=== PATIENT | male | born 1995 | race African-American/Black ===

== ENCOUNTER 2018-05-01 18:57 | Emergency (ER) | payer OTHER ==
[2018-05-01] MEDS ORDERED: cefTRIAXone SOD 1 GM in D5W MINI-BAG PLUS 50 ML IV (20:15)
[2018-05-01] MEDS: cefTRIAXone SOD 1 GM VIAL (J0696) IM (20:29)
[2018-05-01] MEDS: AZITHROMYCIN 250 MG TAB PO (20:29)
[2018-05-01 22:51] LABS: CHLAMYDIA DNA AMPLIFICATION NEGATIVE (NEGATIVE); GC DNA AMPLIFICATION NEGATIVE (NEGATIVE)
== END 2018-05-01 20:59 | disposition home or self-care (01) ==
LOC: M ED 18:57
DX: Z20.2 Contact with and (suspected) exposure to infections with a predominantly sexual mode of transmission (principal)
CPT/HCPCS: J0696

== ENCOUNTER 2018-08-25 06:17 | Emergency (ER) | payer OTHER | END 2018-08-25 07:17 | disposition home or self-care (01) | LOC: M ED 06:17 | DX: J06.9 Acute upper respiratory infection, unspecified (principal); R00.1 Bradycardia, unspecified | CPT/HCPCS: 71046 ==

== ENCOUNTER 2019-04-19 19:10 | Emergency (ER) | payer OTHER ==
[~2019-04-19] VITALS: Ht 185.4 cm; Wt 86.4 kg
[~2019-04-19 19:10] MED LIST: FLON1SPR NARES; ZITHTAB PO; ZYRT10CA PO
[2019-04-19 20:04] LABS: BASO % 0.3 % (0.0-1.0); EOS # 0.3 10^3/uL (0.0-0.50); EOS % 3.5 % (0.0-3.0); HEMATOCRIT 44.5 % (42.0-52.0); HEMOGLOBIN 14.5 g/dl (13.5-17.5); LYMPH # 2.1 10^3/uL (1.5-6.5); LYMPH % 26.3 % (24.0-44.0); MEAN CORPUSCULAR HEMOGLOBIN 26.5 pg (27.0-33.0); MEAN CORPUSCULAR HGB CONC 32.6 g/dl (32.0-36.5); MEAN CORPUSCULAR VOLUME 81.4 fl (80.0-96.0); MONO # 0.6 10^3/uL (0.0-0.8); MONO % 7.3 % (0.0-5.0); NEUTROPHILS % 62.3 % (36.0-66.0); PLATELET COUNT, AUTOMATED 181 10^3/uL (150-450); RED BLOOD COUNT 5.47 10^6/uL (4.30-6.10)
[2019-04-19 21:12] LABS: ALBUMIN 3.3 GM/DL (3.2-5.2); ALT/SGPT 635 U/L (12-78); BILIRUBIN,TOTAL 0.5 MG/DL (0.2-1.0); BLOOD UREA NITROGEN 13 MG/DL (7-18); CALCIUM LEVEL 8.7 MG/DL (8.5-10.1); CARBON DIOXIDE LEVEL 31 MEQ/L (21-32); CHLORIDE LEVEL 106 MEQ/L (98-107); CREATININE FOR GFR 1.13 MG/DL (0.70-1.30); GLOMERULAR FILTRATION RATE > 60.0 (>60); GLUCOSE, FASTING 108 MG/DL (70-100); POTASSIUM SERUM 4.4 MEQ/L (3.5-5.1); SODIUM LEVEL 141 MEQ/L (136-145); TOTAL PROTEIN 6.8 GM/DL (6.4-8.2)
--- NOTE | 2019-04-19 22:12 | REPVR ---
EXAM: CT Abdomen and Pelvis Without Contrast EXAM DATE/TIME: 04/19/2019 9:02 PM CLINICAL HISTORY: 23 years old, male; Abdominal pain; Generalized; Additional info: RO kidney stone TECHNIQUE: Imaging protocol: Axial computed tomography images of the abdomen and pelvis without contrast. Coronal and sagittal reformatted images were created and reviewed. Radiation optimization: All CT scans at this facility use at least one of these dose optimization techniques: automated exposure control; mA and/or kV adjustment per patient size (includes targeted exams where dose is matched to clinical indication); or iterative reconstruction. COMPARISON: No relevant prior studies available. FINDINGS: ABDOMEN: Liver: Normal. No mass. Gallbladder and bile ducts: Normal. No calcified stones. No ductal dilation. Pancreas: Normal. No ductal dilation. Spleen: Normal. No splenomegaly. Adrenals: Normal. No mass. Kidneys and ureters: Normal. No hydronephrosis. Stomach and bowel: While the rectosigmoid colon is relatively decompressed, there is a moderate to large amount of stool within the remaining colon Appendix: Not seen as a separate structure. No inflammatory changes at the base of the cecum. PELVIS: Bladder: Unremarkable as visualized. Reproductive: Unremarkable as visualized. ABDOMEN and PELVIS: Intraperitoneal space: Normal. No free air. No significant fluid collection. Bones/joints: No acute fracture. No dislocation. Soft tissues: Unremarkable. Vasculature: Normal. No abdominal aortic aneurysm. Lymph nodes: Normal. No enlarged lymph nodes. IMPRESSION: 1. No acute findings. No renal calculi. No hydronephrosis or hydroureter. 2. Moderate to large amount of stool in the colon as described above Electronically signed by: Trista Amaya On 04/19/2019 22:12:27 PM
[2019-04-19 22:36] VITALS: BP 129/74
[2019-04-21 09:57] LABS: HEPATITIS B SURFACE ANTIGEN NEGATIVE (NEGATIVE)
[2019-04-21 10:25] LABS: HEPATITIS C VIRUS ABY INDEX 0.1 INDEX (<0.8)
[2019-04-21 10:26] LABS: HEPATITIS B CORE ANTIBODY IGM NEGATIVE (NEGATIVE)
[2019-04-21 10:50] LABS: HEPATITIS A ANTIBODY IGM NEGATIVE (NEGATIVE)
== END 2019-04-19 22:45 | disposition home or self-care (01) ==
LOC: M ED 19:10
DX: R94.5 Abnormal results of liver function studies (principal); R31.9 Hematuria, unspecified